=== PATIENT | female | born 2000 | race Caucasian/White ===

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

== ENCOUNTER 2019-12-08 10:02 | Inpatient (IN) | payer OTHER ==
[~2019-12-08] VITALS: Ht 170.2 cm; Wt 117.9 kg
--- NOTE | ~2019-12-08 | OP ---
PATIENT NAME: JEANNIE SEXTON MEDICAL RECORD: [id number] :99 LOCATION:[facility].1222 ADMISSION DATE:12/08/19 SURGEON: RODOLFO MELGOZA MD DATE OF OPERATION: 12/08/2019 PREOPERATIVE DIAGNOSES: 1. Term intrauterine at 37 weeks. 2. History of previous section. 3. History of rapid conception, status post previous section. POSTOPERATIVE DIAGNOSES: 1. Term intrauterine at 37 weeks. 2. History of previous section. 3. History of rapid conception, status post previous section. PROCEDURE: Repeat low transverse section. SURGEON: Rodolfo Melgoza MD ANESTHESIA: Regional via spinal. INTRAVENOUS FLUIDS: Per anesthesia record. ESTIMATED BLOOD LOSS: 1000 cc. SPECIMENS: Included placenta and cord for gases. FINDINGS: 1. Viable infant, Apgars 9 at 1 and 9 at 5. 2. Placenta delivered manually and intact, 3-vessel cord noted. 3. Normal appearing adnexa bilaterally. COMPLICATIONS: None apparent. DESCRIPTION OF PROCEDURE: The patient was taken to the operating room where regional anesthesia was achieved without difficulty. The patient was prepped and draped in normal sterile fashion in the dorsal supine position. A Voss catheter had been placed and was draining freely. SCDs were on and functioning normally. Following prep and drape, a repeat Pfannenstiel skin incision was made and extended downward to the underlying fat to the level of the fascia. The fascia was then carefully excised in the midline and extended bilaterally using the Rehman scissors. The superior and inferior aspects of the fascial incision were then grasped with June clamps times 2, tented upward, and sharply dissected from the underlying rectus muscle using the Metzenbaum scissors and the Bovie cautery. The rectus muscles were then in the midline using sharp dissection and the peritoneum was entered sharply at the superior aspect of the incision. Further dissection downward of the rectus diastasis was performed on the peritoneum and bladder were identified and multiple adhesions were lysed between the bladder and the uterus using the Metzenbaum scissors. At this point, a bladder flap was developed by excising the anterior leaf of broad ligament across the lower uterine segment. This was further developed sharply using the Metzenbaum scissors and a bladder blade was placed into the pelvis. A low transverse incision was made with a scalpel and extended using the Pelosi method. The vertex and body were then delivered atraumatically and it was bulb suctioned upon delivery. Cord was clamped times OPERATIVE REPORT [id number] JEANNIE SEXTON 2, cut, and the was handed to awaiting nursery team. Cord was obtained for gases. The placenta was removed manually and intact. The uterus was exteriorized, cleared of all clots and debris and massaged vigorously until good uterine tone was noted. The uterine incision was repaired with 0 Vicryl in a running locked fashion times 2 with good hemostasis noted. Posterior cul-de-sac was then thoroughly irrigated and uterus was replaced into the pelvis. The anterior cul-de-sac was then thoroughly irrigated, again showing good hemostasis. Counts were correct times 2 for needles, sponges, and instruments. The fascia was then repaired with 0 loop PDS in a running locked fashion and the skin was repaired with coleman. The patient tolerated the procedure well and was transferred to postanesthesia recovery stable without incident. TRANSINT:[id number] Voice Confirmation ID: [id number] DOCUMENT ID: [id number] RODOLFO MELGOZA MD CC: [id number] DICTATION DATE: 12/22/19624 LICENSED PSYCHOLOGIST MANAGER: 12/22/19 1225 DIS IN 12/10/19 [facility] [address] [id number]
[~2019-12-08 10:02] MED LIST changes: +ZOLOFT50 MG PO
[2019-12-08] MEDS ORDERED: PRENAVITE1 TAB PO (10:33)
[2019-12-08 10:37] VITALS: BP 115/59; Ht 170.2 cm; Wt 117.9 kg
[2019-12-08 11:05] LABS: HEMATOCRIT 36.2 % (36.0-48.0); HEMOGLOBIN 11.3 g/dL (12-16); MCH 27.7 pg (26.0-34.0); MCHC 31.2 g/dL (31.0-37.0); MCV 88.7 fL (80.0-100.0); MEAN PLATELET VOLUME 9.4 fL (7.4-10.4); RBC 4.08 10x6/uL (4.00-5.40); RDW 17.1 % (11.5-14.5); WBC 8.6 10x3/uL (4.8-10.8)
[2019-12-08 12:16] LABS: BACTERIA FEW /hpf (NEGATIVE); BILIRUBIN NEGATIVE (NEGATIVE); EPITHELIAL CELLS OCC /hpf (0-5); GLUCOSE NEGATIVE (NEGATIVE); KETONE NEGATIVE (NEGATIVE); NITRITE NEGATIVE (NEGATIVE); RED CELLS - URINE NONE SEEN /hpf (0-5); SPECIFIC GRAVITY 1.005 (1.005-1.020); WHITE CELLS - URINE RARE /hpf (NEGATIVE)
--- NOTE | 2019-12-08 16:55 | NUR ---
ICE APPLIED, SCDS INTACT. ISAAC DRAINING TO GRAVITY. PT WAS PROVIDED WITH 2MG OF DILAUDID FOR INCISIONAL PAIN AND VOICED RELIEF. VSS AND STILL BEING MONITERED. RR NONLABORED ON RA. SPINAL WEARING OFF PT CAN WIGGLE TOES AND FEEL SENSATION BILATERALLY IN HER THIGHS. PERIPAD MODERATE BLOOD WITHOUT ANY ACTIVE BLEEDING NOTED. ABDOMEN DRSG CDI. FUNDUS PALPATED AND FIRM BELOW HER UMBILICUS. NO IMMEDIATE NEEDS AT THIS TIME. WILL CALL REPORT.
[2019-12-08 17:13] VITALS: BP 113/64
--- NOTE | 2019-12-08 17:30 | NUR ---
RECEIVED BY BED FROM RECOVERY, SHE IS AWAKE AND ALERT. FUNDUS FIRM AT U/1, LIGHT BLEEDING AND NOT CLOTS NOTED. ISAAC TO BEDSIDE DRAIN WITH 200ML NOTED. RATES PAIN AT 6/10 AND REQUEST LARGE ICE WITH SPRITE.
--- NOTE | 2019-12-08 17:45 | NUR ---
FUNDUS FIRM AT U/1 WITH LIGHT BLEEDING NOTED. COMPOSITE SCIENCE TEACHER PER ORDERS AND SCANNED TO EMAR. PT DEMONSTRATES HER UNDERSTANDING OF USE. DENIES NEEDS AT THIS TIME.
[2019-12-08 18:15] VITALS: BP 117/52
--- NOTE | 2019-12-08 18:15 | NUR ---
CALLED TO ROOM, PT HAS VOMITING APPROX 200ML LIQUID, STATES THAT SHE OFTEN GETS SICK AFTER SURGERY. ZOFRAN GIVEN PER ORDERS. PT MOTHER AT BEDSIDE. CALL LIGHT IN REACH.
--- NOTE | 2019-12-08 19:30 | NUR ---
PM ROUNDS MADE, PT HOLDING , PT REPORTS VOMITING, APPROX 100 MLS OF LIQUIDY EMESIS NOTED IN EMESIS BAG, PT STATES "THIS ALWAYS HAPPENS WHEN I GET THAT KETAMINE", PT INST NOT TO EAT OR DRINK AT THIS TIME, ICE CHIPS SERVED, PT VERBALIZES UNDERSTANDING, INFORMED PT THAT I WILL BE BACK SHORTLY TO DO ASSESSMENT, PT VERBALIZES UNDERSTANDING, DENIES FURTHER NEEDS, PT'S MOM AT BEDSIDE
--- NOTE | 2019-12-08 20:15 | NUR ---
PT HOLDING INFANT, PT DENIES NEEDS AT THIS TIME, PT'S MOM AT BEDSIDE
[2019-12-08 21:10] VITALS: BP 131/56
--- NOTE | 2019-12-08 21:10 | NUR ---
ASSESSMENT PER FLOW SHEET, VS OBTAINED, IV IN LEFT FA INTACT WITH NO REDNESS OR EDEMA INFUSING VIA PUMP NS WITH PITOCIN AT 125 ML/HR, DILAUDID FLAG MAKER FOR PAIN MANAGEMENT, PT INST ON AND VERBALIZES UNDERSTANDING OF FLAG MAKER, FF, ML, U/1, LITE BLEEDING NOTED WITH 1 SMALL CLOT, PT CLEANED UP WITH WET WARM WASH CLOTHS, WHITE CHUX, LIAM PAD, AND PINK PAD CHANGED, BIKINI INC WITH DRESSING CDI WITH NO DRAINAGE NOTED, FRESH ICE PACK TO ABD, ISAAC CATH INTACT DRAINING DARK YELLOW URINE, SCDS NOTED TO BE DISCONNECTED FROM PUMP, SCD'S CONNECTED TO PUMP AND WORKING PROPERLY, PT REQUESTED AND SERVED LEMON [place] SODA AND FRESH H20, DENIES FURTHER NEEDS, BEDDING PROVIDED TO FOB
--- NOTE | 2019-12-08 22:30 | NUR ---
PT RESTING, FOB HOLDING INFANT, PT DENIES NEEDS AT THIS TIME
[2019-12-08 23:07] VITALS: BP 111/47
--- NOTE | 2019-12-08 23:07 | NUR ---
VS OBTAINED, SCANT VAG BLEEDING NOTED WITH NO CLOTS, NEW BAG OF NS WITH PITOCIN HUNG VIA PUMP, AND ADM TORADOL SIVP PER MD ORDES, SEE EMAR, ISAAC CATH EMPTIED, PT INST ON DRKING PLENTY OF FLUID, FRESH H20, SERVED, DENEIS FURTHER NEEDS, SCD'S COTNINUE ON AND WORKING PROPERLY, FOB HOLDING
--- NOTE | 2019-12-09 00:25 | NUR ---
PT RESTING, INFANT IN OPEN CRIB CART AND FOB AT BEDSIDE, PT DENIES NEEDS AT THIS TIME
--- NOTE | 2019-12-09 02:05 | NUR ---
PT AROUSES TO OPENING OF DOOR, INFANT TO ROOM VIA OPEN CRIB CART PER THIS RN, BANDS CHECKED, SCD'S CONTINUE ON AND WORKING PROPERLY, PT DENIES NEEDS, FOB AT BEDSIDE
[2019-12-09 04:40] VITALS: BP 92/50
--- NOTE | 2019-12-09 04:40 | NUR ---
PT AWAKE, VS OBTAINED, PUMPS CLEARED, ISAAC CATH EMPTIED, PT CLEANED UP WITH WET WARM WASH CLOTHS, LITE BLEEDING NOTED WITH NO CLOTS, WHITE CHUX AND LIAM PAD CHANGED, FRESH ICE PACK TO ABD, PT REPORTS USING I.S. INST, SCD'S CONTINUE ON AND WORKING PROPERLY, PT DENIES NEEDS OR PAIN AT THIS TIME, REPORTS USING DIRECTOR OF REVENUE INST, INFANT IN OPEN CRIB CART AND FOB AT BEDSIDE
--- NOTE | 2019-12-09 06:16 | NUR ---
PT AWAKE, RATES PAIN AND CRAMPING /, PT REQUESTED AND SERVED LEMON [place] SODA, DENIES FURTHER NEEDS, FOB HOLDING INFANT AT THIS TIME
[2019-12-09 07:00] LABS: BASOPHILS 0.2 % (0-2); HEMOGLOBIN 10.3 g/dL (12-16); IMMATURE GRANULOCYTES 0.2 % (0-5); LYMPHOCYTES 19.3 % (15-50); MCHC 30.3 g/dL (31.0-37.0); MCV 89.2 fL (80.0-100.0); MEAN PLATELET VOLUME 9.6 fL (7.4-10.4); NEUTROPHILS 70.3 % (40-80); PLATELET COUNT 240 10x3/uL (130-400); RBC 3.81 10x6/uL (4.00-5.40); RDW 17.2 % (11.5-14.5); WBC 9.1 10x3/uL (4.8-10.8)
[2019-12-09 07:13] LABS: RAPID PLASMA REAGIN Non Reactive (Non Reactive)
--- NOTE | 2019-12-09 08:15 | NUR ---
TOBACCO STRIPPER HAND SYRINGE CHANGED. C/O ABD AND INCISIONAL DISCOMFORT 10/09, DISCUSSED ADMINISTERING TORADOL, REFUSES AT THIS TIME, STATES THAT TOBACCO STRIPPER HAND IS CONTROLLING PAIN WELL,STATES THAT SHE WILL NOTIFY RN IF SHE NEEDS ADDITIONAL INTERVENTION.
[2019-12-09 09:22] VITALS: BP 99/44
--- NOTE | 2019-12-09 09:22 | NUR ---
SHIFT ASSESSMENT COMPLETED PER FLOWSHEET. VSS. FUNDUS FIRM, MIDLINE AND U1 WITH SMALL AMT RUBRA LOCHIA, NO CLOTS NOTED. PERICARE DONE, TOWELS, PADS AND CHUX CHANGED. PAIN CURRENTLY 3-10/09. REQUEST TORADOL AND GIVEN PER PT REQUEST. DRSG TO LOWER TRANSVERSE ABD INCISION CLEAN, DRY AND INTACT, NO DRAINAGE NOTED. ISAAC DRAINING TO BEDSIDE DRAINAGE. PT REPORTS THAT SHE IS PASSING FLATUS. BOWELS SOUNDS PRESENT AND ACTIVE X4 QUADRANTS. SCDS ON BLE. INCENTIVE SPIROMETER DONE X10, COUGH AND DEEP BREATHING DONE WITH GOOD EFFORT. POC DISCUSSED WITH PT, VERBALIZES UNDERSTANDING AND DENIES QUESTIONS. BED IN LOW POSITION WITH SRUP X2. CALL LIGHT AND PHONE WITHIN REACH.
--- NOTE | 2019-12-09 09:57 | NUR ---
PAIN REASSESSMENT COMPLETED AT THIS TIME. 08/11. DENIES NEEDS. CONVERSING WITH FOB, SUPPORTIVE AND ATTENTIVE TO PT AND INFANT NEEDS. SCD'S ON BLE. BED IN LOW POSITION WITH SRUP X2. CALL LIGHT AND PHONE WITHIN REACH. WILL CONTINUE TO MONITOR.
--- NOTE | 2019-12-09 10:36 | NUR ---
PT CALLS VIA CALL LIGHT, REQUESTS TO GET OOB AND AMBULATE. DISCUSS POC AND CALLING MD FOR ORDERS, VERBALIZES UNDERSTANDING. ICE PACK AND ICE WATER PROVIDED. DENIES PAIN AND ADDITIONAL NEEDS AT THIS TIME.
--- NOTE | 2019-12-09 10:44 | NUR ---
DR. CAZARES PAGED TO REQUEST ORDERS TO NORMALIZE PER PT REQUEST.
--- NOTE | 2019-12-09 10:47 | NUR ---
DR. CAZARES ON UNIT, NOTIFIED OF PT REQUEST TO NORMALIZE. LABS REVIEWED. DR. CAZARES TO ROOM TO SEE PT.
--- NOTE | 2019-12-09 11:30 | NUR ---
SHAHIDA SL. C/O ABD AND INCISIONAL DISCOMFORT 10/09. NORCO GIVEN PER ORDER. PT EDUCATED ON MED AND POC CHANGES DISCUSSED. VERBALIZES UNDERSTANDING AND DENIES QUESTIONS. ISAAC D/C'D WITH 800 MLS PRESENT. L FA PIV SL. SCD'S OFF PER PT REQUEST. UP TO BR. STANDBY ASSIST. PERICARE DONE PER PT. PADS AND PANTIES PROVIDED. STEADY GAIT NOTED, DENIES DIZZINESS AND REQUESTS TO AMBULATE ON UNIT. AMBULATORY WITH SIGNIFICANT OTHER. CHUX CHANGED. BED IN LOW POSITION WITH SRUP X2. CALL LIGHT AND PHONE WITHIN REACH. WILL CONTINUE TO MONITOR.
[2019-12-09 12:19] VITALS: BP 94/61
--- NOTE | 2019-12-09 12:19 | NUR ---
VSS. FUNDUS FIRM, MIDLINE AND U2 WITH SMALL AMT RUBRA LOCHIA. PT UP TO BR, VOIDED 500 MLS IN HAT. AMBULATORY ON UNIT WITH SIGNIFICANT OTHER. DENIES NEED AT THIS TIME. STEADY GAIT NOTED. WILL CONTINUE TO MONITOR.
--- NOTE | 2019-12-09 14:17 | NUR ---
AMBULATORY TO DESK, STATES THAT SHE VOIDED AND IS GOING TO GO GET INFANT FROM [facility]. 700 MLS CLEAR LIGHT YELLOW URINE EMPTIED FROM HAT. DENIES NEEDS. STEADY GAIT NOTED. WILL CONTINUE TO MONITOR.
--- NOTE | 2019-12-09 15:25 | NUR ---
PT'S MOTHER TO DESK, STATES THAT SHE IS GOING TO CAR TO LET PT'S FATHER COME VISIT FOR PERIOD OF TIME. DISCUSSED VISITOR POLICY AND REINFORCED D/T FOB ALREADY LEAVING AND PT'S MOTHER TAKING HIS PLACE. PT'S MOTHER UPSET, STATES THAT NOT WHAT I WAS TOLD YESTERDAY. CLARIFIED POLICY WITH SUNIL LYNNCLOUD SUBJECT MATTER EXPERT WHO STATES THAT POLICY REMAINS 1 WELL VISITOR PER DAY PER PT. REINFORCED WITH PT'S MOTHER. PT'S MOTHER STATES THAT SHE WANTS PHONE NUMBER TO ADMINSTRATION TO DISCUSS ISSUE, PHONE NUMBER PROVIDED, OFFERED TO LET BRICK PAVER SPEAK WITH HER AND CLOUD SUBJECT MATTER EXPERT, STATES THAT SHE WANTS TO DISCUSS WITH SOMEONE ABOVE NURSING STAFF. ZAHIRA BOONE RN AND SUNIL LYNNCLOUD SUBJECT MATTER EXPERT NOTIFIED. DISCUSSED WITH PT WHO IS UNDERSTANDING AND DENIES CONCERNS REGARDING VISITOR POLICY. STATES THAT HER MOTHER IS UPSET D/T GRANDFATHER BEING UPSET.
[2019-12-09 15:30] VITALS: BP 99/54
--- NOTE | 2019-12-09 15:30 | NUR ---
TORADOL AND MOTRIN GIVEN PER PT REQUEST D/T C/O ABD AND INCISIONAL DISCOMFORT. VSS. FUNDUS FIRM, MIDLINE AND U2 WITH SCANT RUBRA LOCHIA. A/C NOT FUNCTIONING, FAN WILL NOT TURN OFF, REQUEST TO MOVE TO DIFFERENT ROOM ONCE PAIN MEDS BEGIN WORKING. ICE WATER PROVIDED. WILL CONTINUE TO MONITOR. PT WILL NOTIFY RN WHEN READY TO MOVE ROOMS.
--- NOTE | 2019-12-09 16:30 | NUR ---
AMBULATORY TO ROOM 1222 FOR CONTINUED PP CARE D/T MALFUNCTIONS OF A/C. STEADY GAIT NOTED. DENIES NEEDS. ORIENTED TO ROOM. CALL LIGHT PLACED WITHIN REACH. TO BR, VOIDS 700 MLS IN HAT. DENIES NEEDS AT THIS TIME. PAIN 2-310. WILL CONTINUE TO MONITOR. BED IN LOW POSITION WITH SRUP X2.
--- NOTE | 2019-12-09 17:10 | NUR ---
BONDING WITH INFANT. PT'S MOTHER PROVIDED WITH TOWELS PER REQUEST. PT DENIES PAIN AND NEEDS AT THIS TIME. WILL CONTINUE TO MONITOR.
--- NOTE | 2019-12-09 19:00 | NUR ---
REPORT GIVEN BY BE ANDERSON
[2019-12-09 20:00] VITALS: BP 99/56
--- NOTE | 2019-12-09 20:00 | NUR ---
ASSESSMENT COMPLETED. PT HEART SOUNDS WNL, LUNGS HAD SOME CRACKLES ON THE RIGHT SIDE. FUNDUS FIRM. PT. STATES SHE IS PASSING GAS. IV TO LEFT WRIST PATENT. SKIN WARM AND DRY. I TOLD PT THAT I HEARD SOME CRACKLES IN HER LEFT LUNG AND NOW IT WAS MOST IMPORTANT THAT SHE PERFORM HER IS HOURLY FOR AT LEAST 10 TIME. I EXPLAINED THAT SHE ALSO NEEDED TO GET UP AND WALK IN THE HALLS. SHE VERBALIZED UNDERSTANDING.
--- NOTE | 2019-12-09 21:00 | NUR ---
NO C/O OR NEEDS AT THIS TIME. PT HAS NOT BEEN UP TO WALK.
--- NOTE | 2019-12-09 21:04 | NUR ---
PT MOTHER CAME TO THE NURSES STATION TELLING ME HER DAUGHTER NEEDED PAIN MEDS AND THAT IT HAD BEEN SINCE 1550 SINCE SHE HAD HER LAST. WHEN I GOT IN THE ROOM TO GIVE MED I EXPLAINED TO PT AND MOMMA THAT HER PAIN MED WAS AN NEEDED MEDICATION AND THEY HAD TO ASK FOR IT. THEY VERBALIZED UNDERSTANDING OF THIS. I WROTE ON HER PT BOARD THE NEXT TIME SHE COULD ASK FOR IT. COFFEE WAS MADE FOR PT MOTHER PER MOTHERS REQUEST.
--- NOTE | 2019-12-09 22:00 | NUR ---
PT HAS HAD A SHOWER. SHE IS NOW BACK IN BED. SHE STATES SHE HAS PERFORMED HER IS. SHE HAS NOT WALKED IN THE HALLS AND SINCE SHE IS BACK IN BED I DON'T KNOW IF THIS IS HER PLAN. SHE HAS BEEN MADE AWARE THAT SHE NEEDED TO DO THIS. PT MOTHER IS STAYING UNTIL 0400 AND HER FATHER WILL THEN BE STAYING WITH HER. THEY ARE ALL PLANNING D/C TOMORROW.
[2019-12-09 22:42] LABS: BASOPHILS 0.1 % (0-2); EOSINOPHILS 2.6 % (0-7); HEMATOCRIT 30.4 % (36.0-48.0); HEMOGLOBIN 9.5 g/dL (12-16); IMMATURE GRANULOCYTES 0.3 % (0-5); LYMPHOCYTES 25.1 % (15-50); MCHC 31.3 g/dL (31.0-37.0); MCV 89.7 fL (80.0-100.0); MEAN PLATELET VOLUME 9.2 fL (7.4-10.4); NEUTROPHILS 62.9 % (40-80); PLATELET COUNT 238 10x3/uL (130-400); RBC 3.39 10x6/uL (4.00-5.40); RDW 17.5 % (11.5-14.5); WBC 7.4 10x3/uL (4.8-10.8)
[2019-12-09 23:49] VITALS: BP 114/60
--- NOTE | 2019-12-10 | NUR ---
PT IS STILL AWAKE WATCHING TV. BABY IS SLEEPING IN THE CRIB. NO NEEDS OR C/0 AT THIS TIME.
--- NOTE | 2019-12-10 02:33 | NUR ---
PT IS AWAKE TALKING TO HER MOTHER. NO C/O OR NEEDS AT THIS TIME
--- NOTE | 2019-12-10 04:00 | NUR ---
PT IS AWAKE. HER FATHER IS NOW WITH HER SINCE HER MOTHER WENT TO WORK. PT HAS NO C/0 OR NEEDS AT THIS TIME. BABY IS ASLEEP IN THE CRIB
[2019-12-10 04:45] VITALS: BP 96/51
--- NOTE | 2019-12-10 07:00 | NUR ---
REPORT RECEIVED FROM Christiano SAWANT RN.
[2019-12-10 08:05] VITALS: BP 115/57
--- NOTE | 2019-12-10 08:05 | NUR ---
ROUNDS MADE. PT SITTING UP IN BED WATCHING TV, EATING BREAKFAST. IN CRIB AT BEDSIDE. ASSESSMENT COMPLETED. SEE FLOWSHEET. PT REQUESTING PAIN MEDICINE-MOTRIN AND NORCO FOR INCISIONAL PAIN.
--- NOTE | 2019-12-10 08:10 | NUR ---
IV FLUSHED EASILY WITH 10ML NS. SL CLAMPED; ALL PORTS COVERED.
[2019-12-10 08:25] VITALS: BP 118/68
--- NOTE | 2019-12-10 09:32 | NUR ---
OFFERED PT. SHOWER. PT. STATES SHE TOOK A SHOWER LAST EVENING.
--- NOTE | 2019-12-10 11:12 | NUR ---
ROUNDS MADE. PT SITTING UP IN BED WATCHING TV. INFANT IN OPEN CRIB AT BEDSIDE. PT. FATHER AT BEDSIDE. PT. ENCOURAGED TO AMBULATE. PT. STATES SHE HAS BEEN WALKING IN ROOM. NO NEEDS VOICED AT THIS TIME.
--- NOTE | 2019-12-10 14:29 | MORECARE ---
CASE MANAGEMENT DISCHARGE SUMMARY PATIENT: JEANNIE SEXTON EMMETT UNIT: [id number] ADM DATE: 12/08/19 AGE: 19 : 99 SEX: F ROOM/BED: D.1222 AUTHOR: CORI NAVARRO PHYSICIAN: REFERRING PHYSICIAN: EULALIO CAZARES MD DATE OF SERVICE: 12/10/19 Discharge Plan Patient Name: JEANNIE SEXTON [facility] [facility] 2000 Planned Disposition: Home Anticipated Discharge Date: 12/12/19 Discharge Date: Expected LOS: 4 Initial Reviewer: [email or web address] Initial Review Date: 12/08/2019 Generated: 12/10/19 3:29 pm Patient Name: JEANNIE SEXTON Page [id number] at 142 All edits/amendments must be made on the electronic document DICTATION DATE: 12/10/19 142 SUPERVISOR NUT PROCESSING: MARCY 12/10/19 1429 RPT#: [id number] DC DATE: STATUS: ADM IN [facility] [address] [place] [address] END OF REPORT
--- NOTE | 2019-12-10 15:59 | NUR ---
ROUNDS MADE. PT SITTING UP IN BED WATCHING TV; INFANT IN OPEN CRIB AT BEDSIDE. NO COMPLAINTS OF PAIN; SPRITE GIVEN. NO OTHER NEEDS OR CONCERNS VOICED AT THIS TIME.
--- NOTE | 2019-12-10 17:15 | NUR ---
DR. CAZARES HERE TO SEE PATIENT. ORDERS RECEIVED.
[2019-12-10] MEDS ORDERED: HYDROCODON-ACE1 EA10 PO ×2 (17:51→17:53)
[2019-12-10] MEDS ORDERED: IBUPROFEN600 MG PO ×2 (17:52→17:53)
--- NOTE | 2019-12-10 18:10 | NUR ---
IV D/C'D. CATHETER INTACT. PRESSURE DRESSING APPLIED.
--- NOTE | 2019-12-10 18:26 | NUR ---
REVIEWED DISCHARGE INSTSRUCTIONS. PT. STATES UNDERSTANDING. PRESCRIPTIONS AND FOLLOW-UP APPOINTMENT GIVEN.
--- NOTE | 2019-12-10 18:40 | NUR ---
PATIENT DISCHARGED HOME AMBULATORY ACCOMPANIED BY FAMILY MEMBER TO PRIVATE VEHICLE.
--- NOTE | 2019-12-11 19:45 | MORECARE ---
CASE MANAGEMENT DISCHARGE SUMMARY PATIENT: JEANNIE SEXTON EMMETT UNIT: [id number] ADM DATE: 12/08/19 AGE: 19 : 99 SEX: F ROOM/BED: D.1222 AUTHOR: CORI NAVARRO PHYSICIAN: REFERRING PHYSICIAN: EULALIO CAZARES MD DATE OF SERVICE: 12/11/19 Discharge Plan Patient Name: JEANNIE SEXTON [facility] [facility] 2000 Planned Disposition: Home Anticipated Discharge Date: 12/12/19 Discharge Date: 12/10/2019 Expected LOS: 4 Initial Reviewer: [email or web address] Initial Review Date: 12/08/2019 Generated: 12/11/19 8:44 pm Last DP export: 12/10/19 1:29 p Patient Name: JEANNIE SEXTON Page [id number] at 1945 All edits/amendments must be made on the electronic document DICTATION DATE: 12/11/191943 INSPECTOR MACHINE PARTS: MARCY 12/11/191943 RPT#: [id number] DC DATE:12/10/19 STATUS: DIS IN [facility] [address] [place] [address] END OF REPORT
== END 2019-12-10 18:41 | disposition home or self-care (01) | DRG 788 ==
LOC: D.WS 10:02 → D.LD 10:02 → D.SDCHOLD 12:00 → D.WS 17:05
PROVIDERS: ADMIT Obstetrics & Gynecology; ATTEND Obstetrics & Gynecology
PROC: 10D00Z1 Extraction of Products of Conception, Low, Open Approach (ICD-10-PCS; principal; 2019-12-08 12:00)
DX: O34.211 Maternal care for low transverse scar from previous cesarean delivery (principal); Z3A.37 37 weeks gestation of pregnancy; Z37.0 Single live birth